=== PATIENT | male | born 1950 | race American Indian/Alaskan Native ===

== ENCOUNTER 2019-04-07 23:49 | Emergency (ER) | payer MEDICARE ==
--- NOTE | 2019-04-08 04:26 | Emergency Department Report ---
ED General Adult HPI - General Chief complaint: Earache Stated complaint: LF EAR PAIN Time Seen by Provider: 04/08/19 03:10 Source: patient Mode of arrival: Ambulatory Limitations: No Limitations - History of Present Illness Initial comments: Patient is a 68-year-old [place] male with history of hypertension who presents to the ED with complaint of acute onset persistent nontraumatic left ear pain for the last 1 week. Patient states that the pain has worsened the last 2 days. Patient denies dizziness, fever, chills, chest pain, dyspnea, nausea, vomiting, headache, nasal and sinus congestion or hearing loss or sore throat MD Complaint: left ear pain -: Sudden, week(s) (1) Location: face Radiation: non-radiation Severity scale (0 -10): 5 Quality: burning, aching, sharp, constant Consistency: constant Improves with: none Worsens with: none Associated Symptoms: denies other symptoms. denies: confusion, cough, diaphoresis, fever/chills, headaches, loss of appetite, malaise, nausea/vomiting, rash, seizure, shortness of breath, syncope, weakness - Related Data Previous Rx's Medication Instructions Recorded Last Taken Type Acetaminophen/Codeine [Tylenol 1 tab PO Q6H PRN #10 tab 04/08/19 Unknown Rx /Codeine # 3 tab] Clindamycin [Clindamycin CAP] 300 mg PO Q8HR #60 capsule 04/08/19 Unknown Rx Ibuprofen [Motrin] 400 mg PO Q8H PRN #20 tablet 04/08/19 Unknown Rx Ofloxacin 0.3% [Floxin 0.3% Otic] 1 drop OT Q6H #5 ml 04/08/19 Unknown Rx Allergies Allergy/AdvReac Type Severity Reaction Status Date / Time Iodinated Contrast- Oral and Allergy Unknown Verified 04/07/19 23:52 IV Dye ED Review of Systems ROS: Stated complaint: LF EAR PAIN Other details as noted in HPI Constitutional: denies: chills, fever Eyes: denies: eye pain, eye discharge, vision change ENT: ear pain (left). denies: throat pain, dental pain, congestion Respiratory: denies: cough, shortness of breath, wheezing Cardiovascular: denies: chest pain, palpitations Endocrine: no symptoms reported Gastrointestinal: denies: abdominal pain, nausea, diarrhea Genitourinary: denies: urgency, dysuria Musculoskeletal: denies: back pain, joint swelling, arthralgia Skin: denies: rash, lesions Neurological: denies: headache, weakness, paresthesias Psychiatric: denies: anxiety, depression Hematological/Lymphatic: denies: easy bleeding, easy bruising ED Past Medical Hx - Past Medical History Previous Medical History?: Yes Hx Hypertension: Yes - Surgical History Past Surgical History?: Yes Additional Surgical History: right arm - Social History Smoking Status: Never Smoker Substance Use Type: None - Medications Home Medications: Home Medications Medication Instructions Recorded Confirmed Last Taken Type Acetaminophen/Codeine [Tylenol 1 tab PO Q6H PRN #10 tab 04/08/19 Unknown Rx /Codeine # 3 tab] Clindamycin [Clindamycin CAP] 300 mg PO Q8HR #60 capsule 04/08/19 Unknown Rx Ibuprofen [Motrin] 400 mg PO Q8H PRN #20 tablet 04/08/19 Unknown Rx Ofloxacin 0.3% [Floxin 0.3% Otic] 1 drop OT Q6H #5 ml 04/08/19 Unknown Rx ED Physical Exam - General Limitations: No Limitations General appearance: alert, in no apparent distress - Head Head exam: Present: atraumatic, normocephalic, normal inspection - Eye Eye exam: Present: normal appearance, PERRL, EOMI Pupils: Present: normal accommodation - ENT ENT exam: Present: normal exam, normal orophraynx, mucous membranes moist, other (Left ear canal swelling and pain; Swollen erythematous left tympanic membrane) - Neck Neck exam: Present: normal inspection, full ROM. Absent: tenderness, lymphadenopathy - Respiratory Respiratory exam: Present: normal lung sounds bilaterally. Absent: respiratory distress, wheezes, rales, stridor, accessory muscle use, decreased breath sounds, prolonged expiratory - Cardiovascular Cardiovascular Exam: Present: regular rate, normal rhythm, normal heart sounds. Absent: systolic murmur, diastolic murmur, rubs, gallop - GI/Abdominal GI/Abdominal exam: Present: soft, normal bowel sounds. Absent: distended, rebound, hyperactive bowel sounds, hypoactive bowel sounds, organomegaly, bruit, hernia - Rectal Rectal exam: Present: deferred - Extremities Exam Extremities exam: Present: normal inspection, full ROM, normal capillary refill - Back Exam Back exam: Present: normal inspection, full ROM. Absent: tenderness, CVA tenderness (R), CVA tenderness (L), muscle spasm, paraspinal tenderness, vertebral tenderness - Neurological Exam Neurological exam: Present: alert, oriented X3, CN II-XII intact, normal gait, reflexes normal - Psychiatric Psychiatric exam: Present: normal affect, normal mood - Skin Skin exam: Present: warm, dry, intact, normal color. Absent: rash ED Course - Reevaluation(s) Reevaluation #1: 04/08/19 04:26 Patient is alert and oriented 3 and is not in distress, sleeping comfortably in the room. Patient was discharged home medications including antibiotics and a dvised to follow-up with his primary care physician in 7-10 days for reevaluation. Patient was advised to return to the ED immediately if symptoms get worse. ED Medical Decision Making - Medical Decision Making Patient is alert and oriented 3 and is not in distress, sleeping comfortably in the room. Based on the physical exam findings, patient was discharged home medications including antibiotics and advised to follow-up with his primary care physician in 7-10 days for reevaluation. Patient was advised to return to the ED immediately if symptoms get worse. Referral to the ENT physician Dr. Morocho was also given to the patient - Differential Diagnosis left otitis media; left otitis externa Critical care attestation.: If time is entered above; I have spent that time in minutes in the direct care of this critically ill patient, excluding procedure time. ED Disposition Clinical Impression: Acute otitis media with effusion of left ear Acute otitis externa of left ear Qualifiers: Otitis externa type: unspecified type Qualified Code(s): H60.502 - Unspecified acute noninfective otitis externa, left ear Disposition: - TO HOME OR SELFCARE Is pt being admited?: No Does the pt Need Aspirin: No Condition: Stable Instructions: Otitis Media (ED), Otitis Externa (ED) Additional Instructions: Take medications with food, drink plenty of fluids and follow up with your Primary Care Physician in 7-10 days for reevaluation. Consider follow up wuth the ENT physician, Dr. Morocho for further evaluation Prescriptions: Clindamycin [Clindamycin CAP] 300 mg PO Q8HR #60 capsule Ofloxacin 0.3% [Floxin 0.3% Otic] 1 drop OT Q6H #5 ml Ibuprofen [Motrin] 400 mg PO Q8H PRN #20 tablet PRN Reason: Pain , Severe (7-10) Acetaminophen/Codeine [Tylenol /Codeine # 3 tab] 1 tab PO Q6H PRN #10 tab PRN Reason: Pain , Severe (7-10) Referrals: DAVID HALLMAN MD [Primary Care Provider] - 3-5 Days NORMA MOROCHO MD [Staff Physician] - 3-5 Days Time of Disposition: 04:29 Print Language: ROMANIAN
[2019-04-08 04:57] VITALS: BP 153/74
== END 2019-04-08 05:00 | disposition home or self-care (01) ==
LOC: ED 23:49
DX: H66.92 Otitis media, unspecified, left ear (principal); H60.502 Unspecified acute noninfective otitis externa, left ear; I10 Essential (primary) hypertension; Z79.899 Other long term (current) drug therapy; Z91.041 Radiographic dye allergy status
CPT/HCPCS: 99282